=== PATIENT | male | born 1970 | race African-American/Black ===

== ENCOUNTER 2019-06-02 01:19 | Emergency (ER) | payer OTHER ==
[~2019-06-02] VITALS: Ht 180.3 cm; Wt 96.2 kg
[2019-06-02] MEDS ORDERED: LIDOCAINE WITH 8.4% SOD BICARB 3 ML DISP.SYRIN. INJ ONE (01:30)
--- NOTE | 2019-06-02 01:57 | PHYS DOC ---
Past Medical History Past Medical History: Hypertension Past Surgical History: Other Additional Past Surgical Histo: PROSTATE SURGERY Alcohol Use: None Drug Use: None Adult General Chief Complaint Chief Complaint: LACERATION/AVULSION HPI HPI Patient is a 49-year-old male who presents with laceration to his left index finger. Patient was at work and was drying off a knife when he cut himself with a knife. Patient states he has some loss of sensation to the tip of his left index finger just distal to the laceration. He denies any other injuries. He rates pain as mild.[] Review of Systems Review of Systems Constitutional: Denies fever or chills [] Respiratory: Denies cough or shortness of breath [] Cardiovascular: No additional information not addressed in HPI [] Musculoskeletal: Positive left index finger laceration and pain [] Current Medications Current Medications Current Medications Medications (Trade) Dose Ordered Sig/Mariel Start Time Stop Time Status Last Admin Dose Admin Diphtheria/ Tetanus/Acell Pertussis (Boostrix) 0.5 ml ONCE ONCE 06/02/19 02:30 06/02/19 02:31 DC 06/02/19 02:23 0.5 ML Lidocaine HCl (Buffered Lidocaine 1%) 3 ml 1X ONCE 06/02/19 01:30 06/02/19 01:34 DC 06/02/19 01:30 3 ML Allergies Allergies Allergies Coded Allergies Type Severity Reaction Last Updated Verified No Known Drug Allergies 06/02/19 No Physical Exam Physical Exam Constitutional: Well developed, well nourished, no acute distress, non-toxic appearance. [] Cardiovascular:Heart rate regular rhythm, no murmur [] Lungs & Thorax: Bilateral breath sounds clear to auscultation [] Skin: There is a 2 cm laceration to the ulnar aspect of the left index finger running transversely, extending into subcutaneous tissue. Laceration is linear with sharp margins. [] Neurologic: Alert and oriented X 3, normal motor function with normal tendon function, loss of fine touch is noted to the tip of the left index finger. [] Current Patient Data Vital Signs Vital Signs Date Time Temp Pulse Resp B/P (MAP) Pulse Ox O2 Delivery O2 Flow Rate FiO2 06/02/19 02:20 75 160/72 (101) 98 06/02/19 01:20 98.1 16 Room Air 98.1 EKG EKG [] Radiology/Procedures Radiology/Procedures [] Course & Med Decision Making Course & Med Decision Making Pertinent Labs and Imaging studies reviewed. (See chart for details) Laceration Repair by me: Anesthesia: 1% lidocaine locally Location: Palmar aspect of left index finger Tendon/Joint/Nerves: No injury Foreign body: None detected after copious irrigation and exploration Technique: A total of 7 Simple Interrupted Sutures were placed utilizing 5-0 Ethilon suture material. Complexity: No subcutaneous sutures/mucosal repair/edge excision Post Closure Length: 2 cm Patient's bleeding was easily controlled in the department and there is no indication of anemia. No evidence of compartment syndrome, neurologic injury, vascular injury, open joint, tendon laceration, or foreign body. Patient is appropriate for outpatient follow up. 48 hour wound check. Scar minimization instructions given. Dragon Disclaimer Dragon Disclaimer This electronic medical record was generated, in whole or in part, using a voice recognition dictation system. Departure Departure Impression: Primary Impression: Finger laceration Disposition: 01 HOME, SELF-CARE Condition: STABLE Patient Instructions: Laceration Care, Adult Problem Qualifiers Primary Impression: Finger laceration Encounter type: initial encounter Finger: index finger Damage to nail status: without damage Foreign body presence: without foreign body Laterality: left Qualified Codes: S61.211A - Laceration without foreign body of left index finger without damage to nail, initial encounter DANTE MIJARES Jr., DO Jun 02, 2019 01:57
[2019-06-02 02:20] VITALS: BP 160/72
[2019-06-02] MEDS ORDERED: DIPHTH,PERTUSS(ACELL),TET TOX 0.5 ML DISP.SYRIN. VAX IM ONE (02:30)
== END 2019-06-02 02:35 | disposition home or self-care (01) ==
LOC: ER 01:19
DX: S61.211A Laceration without foreign body of left index finger without damage to nail, initial encounter (principal); I10 Essential (primary) hypertension; X78.1XXA Intentional self-harm by knife, initial encounter; Y93.89 Activity, other specified; Y92.89 Other specified places as the place of occurrence of the external cause; Y99.0 Civilian activity done for income or pay
CPT/HCPCS: 12001; 90471; 90715; 99283